=== PATIENT | female | born 1985 | race African-American/Black ===

== ENCOUNTER 2018-03-12 10:32 | Inpatient (IN) | payer OTHER ==
[~2018-03-12] VITALS: Ht 174 cm; Wt 83.2 kg
[~2018-03-12 10:32] MED LIST: PRENTAB26 PO
[2018-03-12] MEDS ORDERED: LACTATED RINGER'S 1000ML 1,000 ML IV SCH ×2 (11:09→11:36)
[2018-03-12] MEDS ORDERED: LACTATED RINGER'S 1000ML 1,000 ML IV PRN (11:09)
[2018-03-12] MEDS ORDERED: OXYTOCIN 30 UNITS/500ML NSS IV ONE (11:21)
[2018-03-12 11:43] LABS: HEMATOCRIT 37.2 % (37-47); HEMOGLOBIN 12.2 g/dL (12.0-16.0); MEAN CORPUSCULAR HEMOGLOBIN 26.6 pg (25-34); MEAN CORPUSCULAR HGB CONC 32.8 g/dl (32-36); MEAN PLATELET VOLUME 9.9 fL (7.4-10.4); PLATELET COUNT 184 K/uL (130-400); RED CELL DISTRIBUTION WIDTH CV 14.7 % (11.5-14.5); RED CELL DISTRIBUTION WIDTH SD 42.5 fL (36.4-46.3); WHITE BLOOD COUNT 7.86 K/uL (4.8-10.8)
[2018-03-12] MEDS ORDERED: LANOLIN OINT EXT PRN (11:45)
[2018-03-12] MEDS ORDERED: ACETAMINOPHEN 325 MG TAB PO PRN (11:45)
[2018-03-12] MEDS ORDERED: MEASLES, MUMPS & RUBELLA VIRUS VIAL SQ. ONE (11:45)
[2018-03-12] MEDS ORDERED: DIPHTHERIA/TETANUS/PERTUSSIS 0.5 ML SYR/VIAL IM. ONE (11:45)
[2018-03-12] MEDS ORDERED: BENZOCAINE 20% AER SPR 82.5 GM CAN EXT PRN (11:45)
[2018-03-12] MEDS ORDERED: SUPERCREAM 0.870 % 15GM JAR EXT PRN (11:45)
[2018-03-12] MEDS ORDERED: OXYTOCIN 30 UNITS/500ML NSS IV PRN (11:45)
[2018-03-12] MEDS ORDERED: HYDROCORTISONE ACETATE 25 MG SUPP PR PRN (11:45)
--- NOTE | 2018-03-12 12:42 | DELIVERY SUMMARY ---
DATE OF OPERATION: 03/12/2018 TIME OF DELIVERY OF BABY: 11:15 a.m. TIME OF DELIVERY OF PLACENTA: 11:24 a.m. DETAILS OF DELIVERY: The patient is a 32-year-old -0-0-1 at 39 weeks and 3 days of gestation who presented to labor and delivery, in active labor, found to be 8 cm dilated, 90% effaced, and had a 0 station. She progressed quickly to full dilatation and desired to push. She stated her contractions started at 9:32 a.m. this morning. They become regular and painful soon as they started. They were every 3-4 minutes when she called. She has history of precipitous delivery with her first . This has been uncomplicated, GBS was negative. Soon after she presented to L&D she progressed to full dilatation and desired to push. The membranes were bulging over the perineum. AROM'ed and meconium stained fluid was obtained. She pushed only once and delivered the head without difficulty. There was a nuchal cord around the neck x1 which was reduced and then the shoulders were delivered with minimal traction. Baby was handed off to the mother where mouth and nose were suctioned. Cord was clamped x2 and cut at 1 minute delay. The vagina and perineum were checked for lacerations. There was a small first degree laceration between the superior labial fusion, superior to the urethra. Rest of the vagina and perineum were intact. The patient was given 1% lidocaine for local anesthesia and the laceration was repaired with 3-0 Vicryl on a SH needle in a running fashion. Excellent hemostasis was achieved. Placenta was found to be in the vagina, delivered spontaneously, was intact and complete. Fundus was firm and contracted. Lower segment was cleared off all clots and debris. EBL was 200 ml. Mom and baby tolerated the procedure well. Sponge, lap, and the instrument count was correct x2. Baby was a viable male , Apgars 8/9. Weight was 3598 gr. No complications happened and I was present during the whole procedure. I attest to the content of the Intraoperative Record and any orders documented therein. Any exceptions are noted below. MTDD
[2018-03-12 12:53] VITALS: Ht 174 cm; Wt 83.2 kg
[2018-03-12 15:45] VITALS: BP 98/63; PULSE 80; TEMP 36.5
[2018-03-12] MEDS: DOCUSATE SODIUM 100 MG CAP PO SCH (19:48)
[2018-03-12 19:50] VITALS: BP 105/66; PULSE 70; TEMP 36.3; O2SAT 100
[2018-03-12] MEDS: IBUPROFEN 600 MG TAB PO PRN (20:02)
[2018-03-12 23:25] VITALS: BP 101/63; PULSE 84; TEMP 36.6; O2SAT 99
[2018-03-13 05:00] VITALS: BP 93/58; PULSE 84; TEMP 36.6; O2SAT 99
[2018-03-13] MEDS: IBUPROFEN 600 MG TAB PO PRN ×2 (05:13→09:59)
[2018-03-13 07:09] LABS: HEMATOCRIT 34.6 % (37-47); HEMOGLOBIN 11.5 g/dL (12.0-16.0)
[2018-03-13 08:00] VITALS: BP 100/67; PULSE 79; TEMP 36.6; O2SAT 99
[2018-03-13] MEDS: PRENATAL VITAMIN TAB PO SCH (08:47)
[2018-03-13] MEDS: DOCUSATE SODIUM 100 MG CAP PO SCH ×2 (08:47→20:01)
[2018-03-13] MEDS: FERROUS SULFATE 325 MG TAB PO SCH (09:59)
--- NOTE | 2018-03-13 10:43 | OB/GYN Progress Note ---
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 Subjective conversation w/ patient, physical exam Ambulation: ambulating normally Voiding: no voiding problems Passing Gas: Yes Diet Tolerance: Regular Diet Lochia: Moderate Feeding Type: Breast Feeding Review of Systems Constitutional: No fever, No chills, No sweats, No weight loss, No weakness, No fatigue, No problem reported Respiratory: No cough, No sputum, No wheezing, No shortness of breath, No dyspnea on exertion, No dyspnea at rest, No hemoptysis, No problem reported Cardiac: No chest pain, No orthopnea, No PND, No edema, No claudication, No palpitations, No problem reported Breast: No see HPI, No breast lump, No change in shape, No nipple discharge, No breast pain, No problem reported Abdomen: No pain, No nausea, No vomiting, No diarrhea, No constipation, No GI bleeding, No problem reported Female : No see HPI, No dysuria, No urinary frequency, No hematuria, No incontinence, No abnormal vaginal bleeding, No vaginal discharge, No problem reported Objective Vital Signs Date Time Temp Pulse Resp B/P (MAP) Pulse Ox O2 Delivery O2 Flow Rate FiO2 03/13/18 08:00 36.6 79 18 100/67 (78) 99 Room Air 03/13/18 07:45 Room Air 03/13/18 05:00 36.6 84 16 93/58 (70) 99 Room Air 03/12/18 23:25 Room Air 03/12/18 23:25 36.6 84 16 101/63 (76) 99 Room Air 03/12/18 19:50 36.3 70 16 105/66 (79) 100 Room Air 03/12/18 15:45 Room Air 03/12/18 15:45 36.5 80 20 98/63 (75) Room Air Physical Exam General Appearance: WELL-APPEARING, WD/WN, NO APPARENT DISTRESS Respiratory/Chest: chest non-tender, lungs clear, normal breath sounds Cardiovascular: regular rate, rhythm, no edema, no gallop Abdomen: normal bowel sounds, non tender, soft Fundus: Firm Extremities: normal range of motion, non-tender, normal inspection Laboratory Results Last 24 Hours Test 03/12/18 11:17 03/13/18 07:01 White Blood Count 7.86 K/uL Red Blood Count 4.59 M/uL Hemoglobin 12.2 g/dL 11.5 g/dL Hematocrit 37.2 % 34.6 % Mean Corpuscular Volume 81.0 fL Mean Corpuscular Hemoglobin 26.6 pg Mean Corpuscular Hemoglobin Concent 32.8 g/dl RDW Standard Deviation 42.5 fL RDW Coefficient of Variation 14.7 % Platelet Count 184 K/uL Mean Platelet Volume 9.9 fL Assessment and Plan Day Number: 1 Continue Routine Care: day #1 Pt doing well anticipate disch tomorrow
[2018-03-13 15:40] VITALS: BP 108/67; PULSE 83; TEMP 36.5; O2SAT 100
[2018-03-13] MEDS ORDERED: BISACODYL 5 MG TABEC PO SCH (20:00)
[2018-03-13 23:45] VITALS: BP 94/62; PULSE 80; TEMP 36.8; O2SAT 97
[2018-03-14 05:44] LABS: HEMATOCRIT 34.9 % (37-47); HEMOGLOBIN 11.5 g/dL (12.0-16.0); MEAN CELL VOLUME 81.4 fL (80-100); MEAN CORPUSCULAR HEMOGLOBIN 26.8 pg (25-34); MEAN PLATELET VOLUME 10.2 fL (7.4-10.4); PLATELET COUNT 169 K/uL (130-400); RED CELL DISTRIBUTION WIDTH CV 14.9 % (11.5-14.5); WHITE BLOOD COUNT 9.57 K/uL (4.8-10.8)
[2018-03-14] MEDS ORDERED: BISACODYL 10 MG SUPP PR PRN (07:00)
[2018-03-14 08:15] VITALS: BP 107/71; PULSE 83; TEMP 36.9
[2018-03-14] MEDS ORDERED: MTR600X PO (08:50)
--- NOTE | 2018-03-14 08:52 | Discharge Instructions ---
Discharge Instructions Date of Service March 14, 2018. Admission Reason for Admission: Check Labor Discharge Discharge Diagnosis / Problem: term delivered Discharge Goals Goal(s): Routine recovery after delivery Activity Recommendations Activity Limitations: as noted below Lifting Limitations: no more than 10 pounds Exercise/Sports Limitations: gradually increase as tolerated May Resume Sexual Activity: after follow-up appointment Shower/Bathe: no limitations Driving or Machine Use: resume 3 days after discharge . Instructions / Follow-Up Instructions / Follow-Up ACTIVITY RECOMMENDATIONS: * Gradual return to full activity over the next 2-3 weeks. * No lifting - nothing heavier than baby over the next 2-3 weeks. * Do not engage in vigorous exercise, sexual activity or sports until cleared by your physician. * Do not drive or operate any motorized equipment until cleared by your physician. * You may shower/bathe daily. BREAST CARE: If you are not breast feeding: * Wear a supportive bra 24 hours a day for one to two weeks. * Avoid stimulating your breasts and nipples as much as possible during the first few weeks after delivery. * When taking a shower, have the warm water hit your back, not breasts. * When your breasts feel full, apply ice packs. Usually three to four times a day helps ease the discomfort. * Take a mild pain medication (Tylenol/Motrin) when you are uncomfortable. If breast feeding: * Use breast milk to lubricate nipples. Lansinoh cream may be used for sore nipples. You do not need to remove cream prior to breast feeding. If using a different brand of cream, check the label for directions regarding removal of cream prior to nursing. * Wear a supportive bra. * If having problems with breasts or breast feeding, call a business systems consultant or your health care provider. EPISIOTOMY CARE: After delivery, if you have an episiotomy (stitches), the following steps will ease discomfort and aid healing. * For the first 24 hours after delivery, place ice packs next to your episiotomy to help reduce swelling. * After the first 24 hour-period, sitz baths, either portable or in the tub, are suggested. A shower with a shower arm sprayed over the episiotomy may be comforting. * Allyssa care should be done after each voiding and bowel movement. Squirt warm water from a plastic bottle over the perineum (region of the body between the anus and urinary opening) and pat dry. * Use Dermoplast to ease discomfort. Shake container. [place] directly over the episiotomy. * Place a Tucks on a clean sanitary pad next to your episiotomy. OVER THE COUNTER MEDICATION: * For discomfort or pain, you may use Acetaminophen (Tylenol), Ibuprofen (Advil ), or Naproxen (Aleve) following the package directions. * For constipation you may use Colace following the package directions. SPECIAL CARE INSTRUCTIONS: When you are discharged from the hospital, it is important for you to follow the instructions listed below: * During the first week at home, you should be able to care for yourself and your baby. In addition, the usual light household activities are encouraged. * Limit your activities to the way you feel. Do not try to clean the house or move furniture. Be sensible. * If you actively engage in sports and have done so up until the time of your delivery, you may resume these activities as soon as you feel able. This may take up to one month or even longer. Use good judgment. * Continue to take your vitamins for at least six weeks after the of your baby. * Your diet need not be limited unless you were on a special diet before your delivery. Breast-feeding mothers need around 2500 calories per day and at least 64-80 ounces of fluid per day (8 to 10 glasses). * You should eat foods from the four major food groups. Crash diets or fad diets are to be avoided. Eating lean meats, fresh fruits and vegetables, low-fat dairy products, high fiber foods and a regular exercise program, will help you get back to your pre- weight without putting your health at risk. * Constipation is sometimes a problem after delivery. Take a mild laxative as needed. If breast feeding, Milk of Magnesia is acceptable to use. You may use a suppository or Fleets enema if no episiotomy. * A daily shower or tub bath is suggested. Be sure to thoroughly and gently dry the perineum. * A bloody vaginal discharge will usually continue until around four weeks post . A small amount of bleeding may continue for as long as six weeks. Vaginal discharge changes from the bright red bleeding after delivery to pink then brownish and finally yellowish-pink before becoming white and disappearing. * Bleeding may increase with activity. Your first period may come in 4-8 weeks. If you are breast feeding, your period may be delayed even longer. * [place] (sex) can begin whenever both you and your partner feel comfortable and do not have any form of genital infection. It is recommended that you wait until after your return appointment and discuss with your physician. If you have questions, please talk to your health care practitioner. A condom should be used to prevent infection and . * Foreplay, gentle intercourse and lubrication is very important the first several times to prevent pain. A water-based lubricant such as K-Y jelly or Astroglide may be used. * Tampons may be used six weeks after delivery. * Douching should be avoided for 6 weeks after delivery. * If you have RH negative blood and your baby is RH positive, you will receive RHOGAM by injection prior to discharge. The nurse will give you a card to keep with you that has the date and place that you received RHOGAM after delivery. * During your care, you had a Rubella screen done to check for the presence of rubella antibodies in your blood. If your test was negative, you will receive a Rubella vaccine prior to discharge. This vaccine may cause a fever, soreness at the injection site and flu-like symptoms. If these symptoms persist, notify your health care practitioner. is not advised for three months after a Rubella vaccine. There is a higher chance of having a baby with defects if conceived within three months of getting the vaccine. * If you were discharged 24 hours from delivery or before 48 hours: Visiting nurses will come to your home 48 hours after discharge to assess you and your baby. The visiting nurse will meet with you while you are in the hospital to arrange a time and get directions to your home. * Verbalizes understanding of car seat law as reviewed with patient nursing. * Car Seat hand-out given and reviewed with patient by nursing. * Shaken baby information reviewed with patient by nursing. Call you doctor if: * Heavy bleeding (saturating several pads an hour) or passing clots the size of your fist. * A fever >101 degrees F (38.3 degrees C) on two occasions four hours apart and/or chills. * Unusual pain in the pelvic or vaginal areas. * "Baby Blues" lasting longer than two weeks. If you have any questions or concerns, call your health care practitioner at . FOLLOW-UP VISIT: * Please call the office at to schedule a 6 week examination. It is important you keep this appointment. * It is important for you to make arrangements for either yearly or twice yearly check-ups thereafter. Current Hospital Diet Patient's current hospital diet: Regular OB Diet Discharge Diet Recommended Diet: Regular OB Diet Pending Studies Studies pending at discharge: no Medical Emergencies . Who to Call and When: Medical Emergencies: If at any time you feel your situation is an emergency, please call 911 immediately. . Non-Emergent Contact Non-Emergency issues call your: Primary Care Provider . . "Provider Documentation" section prepared by Victoriano Rosales. .
[2018-03-14] MEDS: FERROUS SULFATE 325 MG TAB PO SCH (08:58)
[2018-03-14] MEDS: DOCUSATE SODIUM 100 MG CAP PO SCH (08:58)
[2018-03-14] MEDS: PRENATAL VITAMIN TAB PO SCH (08:58)
--- NOTE | 2018-03-14 09:35 | OB/GYN Progress Note ---
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 Subjective conversation w/ patient, physical exam Ambulation: ambulating normally Voiding: no voiding problems Passing Gas: Yes Diet Tolerance: Regular Diet Lochia: Small Feeding Type: Breast Feeding Objective Vital Signs Date Time Temp Pulse Resp B/P (MAP) Pulse Ox O2 Delivery O2 Flow Rate FiO2 03/13/18 23:45 36.8 80 16 94/62 (73) 97 Room Air 03/13/18 23:45 Room Air 03/13/18 15:40 36.5 83 16 108/67 (81) 100 Room Air 03/13/18 15:40 Room Air Physical Exam General Appearance: WELL-APPEARING, WD/WN, NO APPARENT DISTRESS Abdomen: non tender, soft Fundus: Firm Extremities: non-tender, normal inspection, no pedal edema Laboratory Results Last 24 Hours Test 03/14/18 05:18 White Blood Count 9.57 K/uL Red Blood Count 4.29 M/uL Hemoglobin 11.5 g/dL Hematocrit 34.9 % Mean Corpuscular Volume 81.4 fL Mean Corpuscular Hemoglobin 26.8 pg Mean Corpuscular Hemoglobin Concent 33.0 g/dl RDW Standard Deviation 43.0 fL RDW Coefficient of Variation 14.9 % Platelet Count 169 K/uL Mean Platelet Volume 10.2 fL Assessment and Plan Post- Day Number: 2 Continue Routine Care: discharged
[2018-03-14 15:30] VITALS: BP 105/69; PULSE 92; TEMP 36.8
[2018-03-14 20:30] VITALS: BP_DIAS 69; PULSE 92; TEMP 36.8
== END 2018-03-14 20:50 | disposition home or self-care (01) | DRG 775 ==
LOC: C.OPB 10:32 → C.LD 10:36 → C.OPB 11:10 → C.LD 11:10 → C.OBG 14:51
PROVIDERS: ADMIT Obstetrics & Gynecology; ATTEND Obstetrics & Gynecology
PROC: 10E0XZZ Delivery of Products of Conception, External Approach (ICD-10-PCS; principal; 2018-03-12)
PROC: 0UQMXZZ Repair Vulva, External Approach (ICD-10-PCS; principal; 2018-03-12)
DX: O77.0 Labor and delivery complicated by meconium in amniotic fluid (principal); O69.81X0 Labor and delivery complicated by cord around neck, without compression, not applicable or unspecified; Z3A.39 39 weeks gestation of pregnancy; Z37.0 Single live birth; O71.82 Other specified trauma to perineum and vulva